=== PATIENT | male | born 1965 ===

== ENCOUNTER 2018-10-30 12:05 | Outpatient (CLI) | payer OTHER ==
--- NOTE | 2018-10-30 13:54 | MRI ---
MRI LUMBAR SPINE: DATE: 10/30/2018. PROVIDED CLINICAL HISTORY:: Lumbago with sciatica. FINDINGS: Five lumbar vertebral bodies are assumed. Lumbar alignment appears normal. Vertebral body heights a ppear preserved. No focal concerning regional marrow signal abnormality. The conus medullaris is no rmal in signal and terminates at an appropriate level. At L1-2, there is no significant central canal or foraminal narrowing apparent. At L2-3, there is no significant central canal or foraminal narrowing apparent. At L3-4, there is a small annular tear involving the dorsal disk margin in the midline. No significa nt central canal or foraminal narrowing apparent. At L4-5, there is a mild broad-based disk bulge and bilateral facet arthritis without significant dimitri tral canal or foraminal narrowing apparent. At L5-S1, there is bilateral facet arthritis, right greater than left, with moderate right foraminal narrowing. There is no significant central canal or left foraminal narrowing apparent. IMPRESSION: Degenerative changes involving the lumbar spine as described. POS: [facility]
== END 2018-10-30 12:06 | disposition home or self-care (01) ==
LOC: BICMRI 12:05
PROVIDERS: ATTEND Family Medicine
DX: M54.41 Lumbago with sciatica, right side (principal); M47.816 Spondylosis without myelopathy or radiculopathy, lumbar region
CPT/HCPCS: 72148